=== PATIENT | male | born 1995 | race Caucasian/White ===

== ENCOUNTER → 2021-10-19 | Outpatient (CLI) | payer OTHER ==
[2021-10-20 15:01] LABS: SARS-Cov-2 (COVID-19) PCR, MMC POSITIVE (NEGATIVE)
== END | disposition home or self-care (01) ==
LOC: LAB 13:47 → LAB SHORT 13:47
PROVIDERS: Physician Assistant
DX: U07.1 COVID-19 (principal)
CPT/HCPCS: U0004

== ENCOUNTER → 2024-12-17 | Outpatient (CLI) | payer OTHER | LOC: LAB 08:13 → LAB SHORT 08:13 | DX: R31.9 Hematuria, unspecified (principal) | CPT/HCPCS: 87086 ==